=== PATIENT | female | born 1965 | race Caucasian/White ===

== ENCOUNTER 2016-07-24 14:56 | Inpatient (IN) | payer MEDICARE, OTHER ==
--- NOTE | ~2016-07-24 | CO ---
Unit #: [id number] #: [id number] Patient: BIPIN VALENZUELA [id number] [facility] [address] [place], [place] [address] [id number] I MR#: [id number] NAME: BIPIN VALENZUELA ROOM: 570 Age: 51 Sex: F Admission Date: 07/25/2016 : 1965 Attending Physician: Dee Pappas M.D. CONSULTATION REPORT REASON FOR CONSULTATION Syncopal episode. Passing out. PATIENT IDENTIFICATION This is a 51-year-old, right-handed, white female, who was evaluated in room 570 at [facility]. SOURCE OF INFORMATION The family and medical records. PROBLEM LIST 1. She has intellectual disabilities. 2. Asymptomatic low blood sugar. 3. Nonsustained V-tach. 4. Hypothyroidism. 5. Posttraumatic stress disorder. 6. Bipolar disorder. 7. Moderate intellectual disability disorder. 8. Dyslipidemia. 9. GERD. 10. Dysmenorrhea. 11. History of cholecystectomy. HISTORY OF PRESENT ILLNESS This is a 51-year-old female, who is actually a resident of [place], [place] and she was admitted for hypoglycemia, which has been asymptomatic. She was supposed to be discharged today and she did well. She had a bowel movement and she was being cleaned by the caregivers who are usually with her all the time and she apparently sort of collapsed. There was no hypoglycemia. Vital signs were okay. She was not on monitor, so they cleaned her to put her back in bed and then she had another episode of loss of bladder control and her eyes rolled back in her head and she may be down for 10 seconds. She is doing fine right now. She is actually back to the baseline. She cannot tell me anything. She is intellectually challenged and does not talk. Her labs really showed little bit of BUN increase of 25, sodium 132, nothing else major otherwise she is already on Depakote and her level was not checked. Her CBC was unremarkable. Urinalysis showed 5 to 10 wbc's with no bacteria, leukocyte esterase was trace. The family reports that she has had event one time like this and she may be and had EEG and they were told that it was medicine-induced seizure and they were talking about some antipsychotic medication I do not have the names. She is back to her baseline. She is not communicating really well. She Unit #: [id number] #: [id number] Patient: BIPIN VALENZUELA is confabulating and perseverating. She is mildly dysarthric. No imaging studies available. No falls or injuries. No other toxin. Nothing suggesting [employer] infection or meningitis. Nothing suggesting stroke-like situation. PAST MEDICAL HISTORY As discussed above. PAST SURGICAL HISTORY As discussed above. ALLERGIES Penicillin, sulfa, Haldol, Bactrim, Paxil, Phenergan, Benadryl, Zyprexa. MEDICATIONS UPON DISCHARGE Supposed to be acetaminophen 500 mg q.5 hours p.r.n. for pain, Depakote 1250 mg b.i.d., also Depakote 1600 mg p.o. at bedtime, sertraline 100 mg daily, omega-3 fatty acid, lithium 150 mg at bedtime and 300 mg p.o. b.i.d., pravastatin, montelukast, omeprazole, levothyroxine, levocetirizine. FAMILY HISTORY Nothing suggesting situation like hers. There are other family members. I believe she has a brother. SOCIAL HISTORY Resident of [place], [place]. No alcohol or drug use. REVIEW OF SYSTEMS Otherwise could not be obtained because of her comorbidities and intellectual disability. PHYSICAL EXAMINATION VITAL SIGNS: Temperature 98.4, pulse 78, respirations 20, blood pressure 132/89, O2 saturations were 93% to 100%. NEUROLOGIC: The patient is awake. She may be following some simple commands. She squeezes my hand. She is responding to pain. She is talking, dysarthric, but no aphasia otherwise. I cannot say anything about orientation. Cranial nerve examination demonstrates respond to threats in the primary de [place]. Eye movements are conjugate. No ptosis. No nystagmus. Sensation on the face and scalp seemed to be normal. Muscles of facial expression seemed to be normal. Muscles of mastication seemed to be normal. Hearing is probably intact. Tongue was midline. I could not visualize her oropharynx or uvula. Head turning was spontaneous. Motor examination, she is moving all extremities. Strength of at least 4/5. Sensory examination intact for soft touch and pain sensation. No extinction was seen, but that was only by stimulation and her response could not check her otherwise. Unit #: [id number] #: [id number] Patient: BIPIN VALENZUELA I could not get any reflexes. Toes are mute. Gait and coordination could not be evaluated. IMPRESSION Two syncopal type episode. It is very atypical. Unfortunately, she was not on a monitor, so I will await for her EEG. I will check a head CT. I will continue the medication. I am going to check her level. She is on rather high doses of Depakote. I will check her ammonia level. Her labs otherwise are not supportive of other abnormalities, so I will talk to her sister, who is actually her caregiver, I believe. Call me for any other questions, issues, or concerns. She is not in status and further treatment will be based on how she does and I will keep you informed. Seizure precautions state laws apply, but unfortunately she has significant limitations anyway, so she is not driving or doing anything but be careful. Dictated by... Toyin Linton/radha TD: 07/28/2016 22:46 JOB #: [id number] CONSULTATION REPORT Page 1 of 1 X Petrona Jimenez MD X CONSULTATION REPORT
--- NOTE | ~2016-07-24 | CR72 ---
[facility] A Service of [facility] RADIOLOGY TEXT RESULTS PATIENT: BIPIN VALENZUELA LOCATION: [facility] 570-01 : [birth year] UNIT #: [id number] AGE: [address]: Dee Pappas MD SEX: F ORDER DR: [id number] [facility] [address] [facility]. [place], [place] [address] [id number] I MR#: [id number] Acc #: [id number] NAME: BIPIN VALENZUELA : 1965 SEX: F STUDY DATE/TIME: 07/24/2016 15:20 UNIT: [facility] ROOM: 01207 STUDY DESCRIPTION: CR Chest Single View Portable Attending Physician: Antonio Hernandez M.D. Ordering Physician: Edilson Lester M.D. Primary Care Physician: No Primary Care Physician MEDICAL IMAGING REPORT This report is preliminary unless electronic signature is present EXAM Portable chest HISTORY 51-year-old female with low blood sugar and weakness today. COMPARISON No comparisons. FINDINGS The lungs are well expanded. No acute infiltrate. Heart size normal. IMPRESSION No active disease. Dictated by... Marshall Albarran M.D. THIS IS AN ELECTRONICALLY VERIFIED REPORT Marshall Albarran M.D. at 07/25/2016 8:39 AM BERNARDO/john TD: 07/24/2016 20:28 JOB #: [id number] MEDICAL IMAGING REPORT Page 1 of 1 COPY
--- NOTE | ~2016-07-24 | CT71 ---
[facility] A Service of [facility] RADIOLOGY TEXT RESULTS PATIENT: BIPIN VALENZUELA LOCATION: [facility] : [birth year] UNIT #: [id number] AGE: [address]: Dee Pappas MD SEX: F ORDER DR: [id number] [place], [place] [address] [id number] I MR#: [id number] Acc #: [id number] NAME: BIPIN VALENZUELA : 1965 SEX: F STUDY DATE/TIME: 07/28/2016 20:39 UNIT: [facility] ROOM: [facility] STUDY DESCRIPTION: CT Head Wo Contrast Attending Physician: Dee Pappas M.D. Ordering Physician: Petrona Jimenez M.D. Primary Care Physician: Primary Care Physician No MEDICAL IMAGING REPORT This report is preliminary unless electronic signature is present EXAM CT brain without contrast HISTORY Syncope today. TECHNIQUE This CT examination was performed with one or more of the following radiation dose reduction techniques: automatic exposure control, adjustment of mA and/or kV according to patient size, and iterative reconstruction. FINDINGS CT brain without contrast demonstrates mild generalized cerebral and cerebellar cortical atrophy. No intracranial hemorrhage, mass or edema is identified. No midline shift or ventricular dilatation or extraaxial fluid collection is demonstrated. The exam is partly limited by motion artifact. IMPRESSION No acute findings. Dictated by... Christian Beck M.D. THIS IS AN ELECTRONICALLY VERIFIED REPORT Christian Beck M.D. at 07/29/2016 3:06 PM DFL/bear TD: 07/29/2016 10:08 JOB #: [id number] [facility] A Service of [facility] RADIOLOGY TEXT RESULTS PATIENT: BIPIN VALENZUELA LOCATION: [facility] : [birth year] UNIT #: [id number] AGE: [address]: Dee Pappas MD SEX: F ORDER DR: MEDICAL IMAGING REPORT Page 1 of 1 COPY
--- NOTE | ~2016-07-24 | EE ---
Unit #: [id number] #: [id number] Patient: BIPIN VALENZUELA [id number] [address] [address] [id number] I MR#: [id number] NAME: BIPIN VALENZUELA : 1965 SEX: F STUDY DATE/TIME: 07/29/2016 UNIT: [facility] [place] [facility] ROOM: 570 STUDY DESCRIPTION: Attending Physician: Dee Pappas M.D. Referring Physician: Petrona Jimenez M.D. Primary Care Physician: No Primary Care Physician NEURODIAGNOSTICS REPORT EXAM EEG. REASON FOR THE STUDY Two syncopal episodes. EEG DESCRIPTION This is an inpatient, digitally recorded, multimontage adult EEG with leads placed according to the International 10/20 System. Hyperventilation and photic stimulation were not done. This EEG shows significant muscle and beta artifact. I could not establish a good background but it was rather faster. It could have been 8 to 10 Hz but not very well established and significant contamination. Nonetheless, no asymmetry. There was a motion artifact. The patient did not fall asleep. Hyperventilation and photic stimulation was not done. Nothing suggesting clear cut asymmetry, interictal discharges, or clinical events. IMPRESSION This is likely an abnormal EEG showing no good alpha rhythm but with significant contamination from muscle and beta artifact. I cannot say anything else, so the important factor is nothing suggesting seizure, status, or interictal discharges, or the cause so clinical correlation is recommended. Dictated by... Toyin Linton/geoffrey TD: 07/29/2016 10:39 JOB #: [id number] Unit #: [id number] #: [id number] Patient: BIPIN VALENZUELA NEURODIAGNOSTICS REPORT Page 1 of 1 X Petrona Jimenez MD NEURODIAGNOSTICS REPORT
--- NOTE | ~2016-07-24 | HP ---
Unit #: [id number] #: [id number] Patient: BIPIN VALENZUELA [id number] [address] [address] [id number] I MR#: [id number] NAME: BIPIN VALENZUELA ROOM: 76913 Age: 51 Sex: F Admission Date: 07/24/2016 : 1965 Attending Physician: Antonio Hernandez M.D. Primary Care Physician: Primary Care Physician No HISTORY AND PHYSICAL CHIEF COMPLAINT Hypoglycemia with sugars down to 57. HISTORY OF PRESENT ILLNESS The patient is 51-year-old female with history of bipolar disorder, PTSD, hypothyroidism, resident of the [place], [place], who presented to the dental clinic earlier today at the [facility]. The patient was presented to the [facility] for followup. The patient reported blood sugar of 64. The patient had breakfast early in the morning at 7:15 a.m. and the patient had the repeat blood sugar it was 57. The patient received honey and glucose and the patient was brought to the emergency room for further evaluation. Patient's sugars were up to 99 in the emergency room and then the blood sugar was drop again to 50s after an hour. The ER physician wants to bring in the patient for the hypoglycemia. The patient is combative, incoherent and unable to provide any history and the history is obtained by speaking to the patient's caregiver at the bedside. Denies any headache, any new medications, or any nausea or vomiting, or any history of diabetes. PAST MEDICAL HISTORY 1. History of bipolar disorder. 2. Posttraumatic stress disorder. 3. Moderate intellectual development disorder. 4. Hypothyroidism. 5. Dyslipidemia. 6. GERD. 7. Dysmenorrhea. PAST SURGICAL HISTORY History of cholecystectomy. HOME MEDICATIONS 1. [place] calcium. 2. Divalproex. 3. Colace. 4. Fish oil. 5. Levocetirizine. 6. [place]. 7. Levothyroxine. 8. Singulair. 9. Omeprazole. 10. Sertraline. 11. Vitamins. 12. Pravastatin. Unit #: [id number] #: [id number] Patient: BIPIN VALENZUELA ALLERGIES 1. Penicillin. 2. Sulfa. 3. Haldol. 4. Bactrim. 5. Paxil. 6. Phenergan. 7. Benadryl. 8. Zyprexa. SOCIAL HISTORY A resident of [place], [place]. No history of alcohol or smoking cigarettes or any illicit drug abuse. REVIEW OF SYSTEMS Unable to obtain. PHYSICAL EXAMINATION VITAL SIGNS: Temperature 99.1, pulse 80, respiratory rate 14, blood pressure 145/96, saturating 99% at room air. GENERAL: Patient is lying on the bed not in acute distress. HEENT: Atraumatic, normocephalic. Pupils equal, round, and reactive to light and accommodation. Extraocular movements are intact. NECK: Supple. No JVD. LUNGS: Clear to auscultation bilaterally. No rhonchi, no wheezing. HEART: Regular rate and rhythm. ABDOMEN: Soft, positive bowel sounds. EXTREMITIES: No cyanosis, no clubbing. DIAGNOSTIC STUDIES LABORATORY: Glucose 99, BUN 26, creatinine 1.3, sodium 145, potassium 3.7, chloride 111, bicarb 26, calcium 9.6, total bilirubin 0.4, AST 25, ALT 21, alkaline phosphatase 77. Lactic acid is 2. [place] level is 0.9. INR 1. Troponin less than 0.05. WBC 5, hemoglobin 13.1, hematocrit 40.2, platelets 112. UA shows trace leukocyte esterase and 5-10 urine wbc's, urine bacteria is negative. IMAGING: Chest x-ray negative. ASSESSMENT AND PLAN 1. Hypoglycemia. 2. Hypothyroidism. 3. Bipolar disorder. PLAN 1. Admit patient as observation with telemetry. 2. Continue with IV fluid D5 half NS at 75 mL per hour. 3. Check hemoglobin A1c. 4. Repeat the lactic acid. There is no evidence of infection. 5. Follow up with a lithium level. 6. Further recommendations will follow as more lab results become available. Dictated by Antonio Hernandez M.D. Unit #: [id number] #: [id number] Patient: BIPIN VALENZUELA IMELDA/cayetano TD: 07/24/2016 22:08 JOB #: [id number] HISTORY AND PHYSICAL Page 1 of 1 X X HISTORY AND PHYSICAL
--- NOTE | ~2016-07-24 | ST ---
Unit #: [id number] #: [id number] Patient: BIPIN VALENZUELA [id number] [address] [address] [id number] MR#: [id number] NAME: BIPIN VALENZUELA : 1965 SEX: F STUDY DATE/TIME: 07/26/2016 UNIT: [facility] ROOM: 570 STUDY DESCRIPTION: Stress ECG Attending Physician: Dee Pappas M.D. Primary Care Physician: No Primary Care Physician CARDIOLOGY REPORT EXAM Stress ECG. FINDINGS Result text under nuclear order number. Please see this order for result text. Dictated by... Jonah Love M.D. PJAubrie/lex TD: 07/27/2016 13:44 JOB #: [id number] CARDIOLOGY REPORT Page 1 of 1 X Jonah Love MD CARDIOLOGY REPORT
--- NOTE | ~2016-07-24 | DS ---
Unit #: [id number] #: [id number] Patient: BIPIN VALENZUELA [address] [place], [place] [address] [id number] I MR#: [id number] NAME: BIPIN VALENZUELA ROOM: 570 Age: 51 Sex: F Admission Date: 07/25/2016 : 1965 Discharge Date: 07/29/2016 Attending Physician: Dee Pappas M.D. Primary Care Physician: No Primary Care Physician DISCHARGE SUMMARY ADDENDUM DISCHARGE DIAGNOSES 3. Probable syncope. INPATIENT PROCEDURES 3. Cardiolite stress test which was negative for ischemia. HOSPITAL COURSE Following last dictation patient was in the process of being discharged when she abruptly sat up. She developed some nausea, had a few episodes of emesis and then had what was described as either a seizure or syncopal episode. Discharge was held. Patient was seen by Dr. Jimenez, her neurologist, in consultation. EEG was negative for seizure. Interestingly enough her Depakote level was low but this is likely due to the fact she had missed doses for several days prior to presentation. It is clinically felt that this was unlikely to be seizure, most likely was a syncopal episode, vagal in origin. She has remained stable without any further episodes and thus she will be discharged back to her facility. I will note patient again underwent a 48-hour fast and did not have any episodes of hypoglycemia. Sugars remained otherwise stable. Just encourage continued p.o. intake. DISCHARGE CONDITION Stable. DISCHARGE STATUS Discharge back to [facility] in [place], [place] under the care of Dr. Torrez. DISCHARGE MEDICATIONS DISCHARGE MEDICATIONS 1. Tylenol 500 mg p.o. q.4 h. p.r.n. for pain 2. Depakote 1250 mg p.o. b.i.d. with 1500 mg q.h.s. 3. Zoloft 100 mg daily 4. Fish oil 500O mg daily. 5. [place] 150 mg q.h.s. and 300 mg otherwise b.i.d. 6. Risamine ointment 3.5 topically b.i.d. 7. Docusate 100 mg q.h.s. 8. Pravastatin 20 mg q.h.s. 9. Singulair 10 mg daily. Unit #: [id number] #: [id number] Patient: BIPIN VALENZUELA 10. Omeprazole 40 mg daily 11. Levocetirizine 2.5 mg q.h.s. 12. Levothyroxine 100 mcg p.o. daily. DISCHARGE INSTRUCTIONS 1. Patient was instructed to follow a regular diet. 2. She can increase her activity as tolerated. FOLLOWUP Patient will follow up with the medical safety director of [facility] in [place], [place]. Dictated by... Dee Pappas M.D. REBEKAH/patti TD: 07/29/2016 15:43 JOB #: [id number] DISCHARGE SUMMARY Page 1 of 1 X Dee Pappas MD X DISCHARGE SUMMARY
--- NOTE | ~2016-07-24 | EKG ---
PATIENT: BIPIN VALENZUELA UNIT #: [id number] Ventricular Rate: 76 BPM Atrial Rate: 76 BPM P-R Interval: 150 ms QRS Duration: 84 ms Q-T Interval: 416 ms QTC Calculation(Bezet): 468 ms P [place]: 49 degrees Calculated R [place]: 47 degrees Calculated T [place]: 14 degrees Diagnosis Line: Normal sinus rhythm Diagnosis Line: Nonspecific T wave abnormality Diagnosis Line: Prolonged QT Diagnosis Line: Abnormal ECG Diagnosis Line: When compared with ECG of 24-JUL-2016 15:23, Diagnosis Line: (unconfirmed) Diagnosis Line: Premature supraventricular complexes are no longer Diagnosis Line: Present Diagnosis Line: Confirmed by MAHESH SIMONS MD ([id number]) on 07/26/2016 Diagnosis Line: 9:30:57 AM INTERPRETING MD: KRISTYN WOODWARD
--- NOTE | ~2016-07-24 | EKG ---
PATIENT: BIPIN VALENZUELA UNIT #: [id number] Ventricular Rate: 70 BPM Atrial Rate: 70 BPM P-R Interval: 150 ms QRS Duration: 68 ms Q-T Interval: 404 ms QTC Calculation(Bezet): 436 ms P [place]: 79 degrees Calculated R [place]: 36 degrees Calculated T [place]: 50 degrees Diagnosis Line: Normal sinus rhythm Diagnosis Line: Nonspecific ST abnormality Diagnosis Line: Baseline wander Otherwise normal ECG Diagnosis Line: When compared with ECG of 24-JUL-2016 15:24, Diagnosis Line: ST elevation now present in Inferior leads Diagnosis Line: Confirmed by MAHESH SIMONS MD ([id number]) on 07/29/2016 Diagnosis Line: 10:59:34 PM INTERPRETING MD: KRISTYN WOODWARD
--- NOTE | ~2016-07-24 | CO ---
Unit #: [id number] #: [id number] Patient: BIPIN VALENZUELA [id number] [address] [address] [id number] I MR#: [id number] NAME: BIPIN VALENZUELA ROOM: 570 Age: 51 Sex: F Admission Date: 07/25/2016 : 1965 Attending Physician: Dee Pappas M.D. Consultation Date: 07/26/2016 CONSULTATION REPORT REASON FOR CONSULTATION Hypoglycemia. HISTORY OF PRESENT ILLNESS This is a 51-year-old female with history of bipolar disorder, PTSD, hypothyroidism, who is a resident of [place], [place], who presented to the clinic for followup. She reports to have a blood sugar of 64 and then 57. On arrival in the emergency room, the patient's blood sugar dropped to 50s. She has been admitted for the hypoglycemia. The patient is very combative, noncooperative, unable to provide any history. PAST MEDICAL HISTORY Reviewed. The patient has no history of any diabetes or any oral hypoglycemic agents. PAST MEDICAL HISTORY Remarkable for bipolar disorder, PTSD, hypothyroidism, GERD, dyslipidemia. PAST SURGICAL HISTORY Cholecystectomy. HOME MEDICATIONS List is reviewed. The patient is on Depakote, lithium, levothyroxine, omeprazole, pravastatin. ALLERGIES Penicillin, sulfa, Haldol, Bactrim, Paxil, and Phenergan. SOCIAL HISTORY Resident of [place]. No history of alcohol, smoking, or drug abuse. PHYSICAL EXAMINATION GENERAL: She is uncooperative and combative, in no acute respiratory distress. VITAL SIGNS: Temperature 97.3, pulse is 101, respiratory rate 18, blood pressure is 139/85. HEENT: EOMI. Pupils equally reactive to light. NECK: Supple. No thyromegaly noted. CHEST: Good air entry. CVS: Regular rhythm. ABDOMEN: Benign. NEURO: Moving all the extremities. DIAGNOSTIC STUDIES Unit #: [id number] #: [id number] Patient: BIPIN VALENZUELA LABORATORY RESULTS: Accu-Cheks is reviewed. ASSESSMENT Recurrent hypoglycemia. Etiology is not clear at this point. We will rule out the possibility of the insulin secreting tumor. We will keep the patient n.p.o. discontinue IV fluids. Draw Accu-Cheks every 1 to 2 hours and blood sugar less than 50. We will draw the serum insulin C-peptide, glucose, and ketones and serum cortisol level. Once all those have been drawn, the patient will be started back on her diet and IV fluids and treat the hypoglycemia per protocol. I will continue to follow the patient for further management and evaluation. Dictated by... Toyin Pierce/radha TD: 07/27/2016 01:28 JOB #: [id number] CONSULTATION REPORT Page 1 of 1 X Tessa Ventura MD X CONSULTATION REPORT
--- NOTE | ~2016-07-24 | TH ---
Unit #: [id number] #: [id number] Patient: BIPIN VALENZUELA [id number] [address] [address] [id number] I MR#: [id number] NAME: BIPIN VALENZUELA : 1965 SEX: F STUDY DATE/TIME: 07/26/2016 UNIT: [facility] ROOM: 570 STUDY DESCRIPTION: Stress nuclear Attending Physician: Dee Pappas M.D. Primary Care Physician: No Primary Care Physician CARDIOLOGY REPORT EXAM Stress nuclear and ECG. INDICATION Chest pain, inability to exercise, hypertension. SUMMARY The patient received Lexiscan intravenously while at rest as well as Tc-99 Cardiolite, 11.49 and 33.7 mCi, at rest and stress respectively. Appropriate views were obtained. FINDINGS The rest ECG was normal. With stress, there was definite T wave inversion in leads II, III, aVF, V3 through V6. These changes resolved post stress. Heart rate increased from 65 to 125 and blood pressure decreased from 143/92 to 125/83. Perfusion images demonstrate normal perfusion throughout the myocardium at both rest and stress with the exception of chest wall and breast attenuation artifact. The patient demonstrated significant motion with the stress images but not the rest images. Gated perfusion wall motion analysis demonstrates normal wall motion throughout the myocardium, a small ventricle end-diastolic volume 55 mL, ejection fraction 66%. Summed stress score is 2. Summed difference score is 2. Changes involve primarily border detection at the base. IMPRESSION 1. Abnormal stress ECG with Lexiscan, not diagnostic for ischemia. 2. Normal stress nuclear study without any evidence of ischemia or infarction. 3. Normal wall motion with excellent ejection fraction. Dictated by... Toyin Bergman/lex TD: 07/27/2016 13:38 JOB #: [id number] Unit #: [id number] #: [id number] Patient: BIPIN VALENZUELA CARDIOLOGY REPORT Page 1 of 1 X Jonah Love MD CARDIOLOGY REPORT
--- NOTE | ~2016-07-24 | DS ---
Unit #: [id number] #: [id number] Patient: BIPIN VALENZUELA [id number] [address] [address] [id number] MR#: [id number] NAME: BIPIN VALENZUELA ROOM: 570 Age: 51 Sex: F Admission Date: 07/25/2016 : 1965 Discharge Date: 07/28/2016 Attending Physician: Dee Pappas M.D. Primary Care Physician: Primary Care Physician No DISCHARGE SUMMARY The patient is a resident of [place], [place]. PRINCIPAL DISCHARGE DIAGNOSES 1. Asymptomatic low blood sugars. 2. Nonsustained V-tach. SECONDARY DIAGNOSES 1. Hypothyroidism. 2. Posttraumatic stress disorder. 3. Bipolar disorder. CONSULTATIONS Dr. Ventura from endocrinology INPATIENT PROCEDURES 1. On 07/26/2016, Lexiscan showed no ST-T wave changes. 2. Forty-eight hour fasting test showed no episodes of hypoglycemia. DISCHARGE MEDICATIONS The patient is to continue his medications on admission as follows: 1. Acetaminophen 500 mg p.o. q.5h p.r.n. for pain 2. Depakote 1250 mg p.o. b.i.d. 3. Depakote 1600 mg p.o. at bedtime 4. Sertraline 100 mg p.o. daily 5. [place] 3 fatty acids 6. [place] 150 mg at bedtime and 300 mg p.o. b.i.d. 7. Docusate p.o. q.h.s. 8. Pravastatin 20 mg daily 9. Montelukast 10 mg p.o. q.h.s. 10. Omeprazole 40 mg daily 11. Levocetirizine 2.5 mg p.o. q.h.s. 12. Levothyroxine 100 mcg p.o. daily HISTORY OF PRESENT ILLNESS AND HOSPITAL COURSE Ms. Valenzuela is a 51-year-old female, with history of significant bipolar disorder, posttraumatic stress disorder, and hypothyroidism, who is a resident of [place], [place] and was found at a dental clinic to have a blood sugar of 57. The patient was given honey and glucose and was brought to the emergency room where her glycemia was noted to be 99 and a few hours later it was found to have dropped to the 50s. The patient was admitted and endocrinology was consulted. The patient was placed on n.p.o. and glycemia was monitored every two hours with standing orders to check for C-peptide as well as glucose, beta hydroxybutyrate acid and Unit #: [id number] #: [id number] Patient: BIPIN VALENZUELA cortisol level, however, after 48 hours the patient did not develop any episodes of hypoglycemia. Her later glycemia was noted as 60 and she remained asymptomatic throughout the hospitalization. She was on telemetry and it was noted that she developed an episode of nonsustained V-tach and because of this she underwent Lexiscan stress test on 07/26 and that failed to reveal any ischemia changes. Today, the patient is stable and after discussion with Dr. Ventura she was considered to be okay for discharge. Her previous episode was asymptomatic and she is not felt to have any pathologic cause of her hypoglycemia. This was explained to the family and it was also indicated to them that if the patient develops episodes of hypoglycemia of 50 or less or become symptomatic from her low blood sugars, she should come back to the hospital. She will follow up with her physician at [facility]. CONDITION Improved. DISPOSITION The patient is being discharged back to the [facility] in [place], [place]. FOLLOWUP The patient is to follow up with her primary care doctor in a week. Dictated by.Rabia Longoria M.D. WINDY/carlos alberto TD: 07/28/2016 11:29 JOB #: [id number] DISCHARGE SUMMARY Page 1 of 1 X X DISCHARGE SUMMARY
[2016-07-24 15:46] LABS: BASOPHIL% 0.4 % (0-2.5); EOSINOPHIL# 0.1 X10e3 (0-0.7); EOSINOPHIL% 2.3 % (0.0-7.0); HEMATOCRIT 40.2 % (35.0-45.0); HEMOGLOBIN 13.1 gm/dL (12.0-16.0); LYMPHOCYTE% 39.3 % (17.0-45.0); MEAN CELL VOLUME 97.1 FL (83-96); MEAN CORPUSCULAR HEMOGLOBIN 31.7 PG (28-34); MEAN CORPUSCULAR HGB CONC 32.7 g/dL (30-36); MEAN PLATELET VOLUME 9.2 FL (6.5-11.5); MONOCYTE# 0.5 X10e3 (0-1.0); MONOCYTE% 9.5 % (3.0-12.0); NEUTROPHIL# 2.4 X10e3 (1.5-7.1); NEUTROPHIL% 48.5 % (40-75); PLATELET COUNT 112 X10e3 (140-420); RED BLOOD COUNT 4.14 X10e (3.90-5.30); RED CELL DISTRIBUTION WIDTH 13.9 % (11.0-15.5)
[2016-07-24 15:47] LABS: DIFF IND NO
[2016-07-24 16:10] LABS: PARTIAL THROMBOPLASTIN TIME 23.6 SECONDS (23.5-31.3); PROTHROMBIN TIME (PATIENT) 10.7 SECONDS (9.6-11.5)
[2016-07-24 16:22] LABS: ALBUMIN SERUM 3.7 g/dL (3.5-5.0); BILIRUBIN, DIRECT 0.1 mg/dL (0.0-0.2); BILIRUBIN,INDIRECT 0.3 mg/dL (0.0-0.9); BILIRUBIN,TOTAL 0.4 mg/dL (0.2-2.0); CALCIUM SERUM 9.6 mg/dL (8.4-10.2); CREATININE SERUM 1.3 mg/dL (0.6-1.4); GLOM FILT RATE Estimated 46.3 mL/min (>60); POTASSIUM 3.7 mmol/L (3.5-5.1); PROTEIN TOTAL SERUM 6.9 g/dL (6.0-8.3)
[2016-07-24 17:51] LABS: URINE SOURCE CLEAN CATCH
[2016-07-24 17:55] LABS: URINE APPEARANCE CLEAR; URINE BILIRUBIN NEG (NEG); URINE BLOOD 1+ (NEG); URINE COLOR YELLOW; URINE GLUCOSE NEG (NEG); URINE KETONE NEG (NEG); URINE LEUKOCYTE ESTERASE TRACE (NEG); URINE NITRATE NEG (NEG); URINE PH 7.5 (5-8); URINE PROTEIN NEG (NEG); URINE SPECIFIC GRAVITY 1.014 (1.003-1.035); URINE UROBILINOGEN 0.2 MG/DL (NEG)
[2016-07-24 17:55] LABS: POC - CKMB <1.0 ng/mL (0.0-7.9); POC - TROPONIN <0.05 ng/mL (<=0.05)
[2016-07-24 17:58] LABS: CULTURE INDICATED? YES; URINE BACTERIA AUWI NEG (NEGATIVE); URINE SQUAMOUS EPITHELIAL CELL FEW /[HPF]
[2016-07-24] MEDS ORDERED: OMEPRAZOLE40 M1 PO (19:30)
[2016-07-24] MEDS ORDERED: CALCIUM 500 +1 EAC2 PO (19:33)
[2016-07-24] MEDS ORDERED: ACETAMINOPHEN650 M3 PO (19:34)
[2016-07-24] MEDS ORDERED: SERTRALINE HCL100 M1 PO (19:35)
[2016-07-24] MEDS ORDERED: FISH OIL500 M1 PO (19:35)
[2016-07-24] MEDS ORDERED: LEVOCETIRIZINE D5 MG PO (19:47)
[2016-07-24] MEDS ORDERED: CHILDREN'S EASY80 MG PO (19:48)
[2016-07-24] MEDS ORDERED: CALCIUM STOOL240 M1 PO (19:49)
[2016-07-24] MEDS ORDERED: LEVOTHYROXINE100 MC1 PO (19:50)
[2016-07-24] MEDS ORDERED: MONTELUKAST SOD10 MG PO (19:50)
[2016-07-24] MEDS ORDERED: MYLANTA125 MG PO (19:53)
[2016-07-24] MEDS ORDERED: RISAMINE OINTM113 GM TOP (19:54)
[2016-07-24] MEDS ORDERED: PRAVASTATIN SOD20 MG PO (19:55)
[2016-07-24] MEDS ORDERED: FISH OIL 1,0001 CAP PO (19:56)
[2016-07-24] MEDS ORDERED: ESKALITH PO ×2 (20:08→20:09)
[2016-07-24] MEDS ORDERED: SINGULAIR PO (20:10)
[2016-07-24] MEDS ORDERED: LITHIUM CARBON300 M1 PO (21:26)
[2016-07-24] MEDS ORDERED: LITHIUM CARBON150 MG PO (21:26)
[2016-07-24] MEDS ORDERED: DEPAKOTE PO ×2 (21:32)
[2016-07-25 16:00] LABS: BUN/CREATININE RATIO 14.61; CALCIUM SERUM 8.6 mg/dL (8.4-10.2); CREATININE SERUM 1.3 mg/dL (0.6-1.4); GLOM FILT RATE Estimated 48.1 mL/min (>60)
[2016-07-26 14:53] LABS: BUN/CREATININE RATIO 13.84; CALCIUM SERUM 9.1 mg/dL (8.4-10.2); CREATININE SERUM 1.3 mg/dL (0.6-1.4); GLOM FILT RATE Estimated 48.1 mL/min (>60); POTASSIUM 4.4 mmol/L (3.5-5.1)
[2016-07-27 07:05] LABS: BUN/CREATININE RATIO 13.07; CALCIUM SERUM 9.3 mg/dL (8.4-10.2); CREATININE SERUM 1.3 mg/dL (0.6-1.4); GLOM FILT RATE Estimated 48.1 mL/min (>60); MAGNESIUM 1.9 mg/dL (1.6-3.0); POTASSIUM 4.3 mmol/L (3.5-5.1)
[2016-07-28 05:07] LABS: BUN/CREATININE RATIO 16.92; CALCIUM SERUM 9.1 mg/dL (8.4-10.2); CREATININE SERUM 1.3 mg/dL (0.6-1.4); GLOM FILT RATE Estimated 48.1 mL/min (>60); POTASSIUM 3.9 mmol/L (3.5-5.1)
[2016-07-28 14:11] LABS: HEMATOCRIT 39.3 % (35.0-45.0); HEMOGLOBIN 13.5 gm/dL (12.0-16.0); MEAN CELL VOLUME 92.5 FL (83-96); MEAN CORPUSCULAR HEMOGLOBIN 31.8 PG (28-34); MEAN CORPUSCULAR HGB CONC 34.4 g/dL (30-36); MEAN PLATELET VOLUME 8.7 FL (6.5-11.5); RED BLOOD COUNT 4.25 X10e (3.90-5.30); RED CELL DISTRIBUTION WIDTH 13.1 % (11.0-15.5); WHITE BLOOD COUNT 7.2 X10e3 (4.0-10.5)
[2016-07-28 14:40] LABS: ALBUMIN SERUM 3.4 g/dL (3.5-5.0); BILIRUBIN,TOTAL 0.7 mg/dL (0.2-2.0); BUN/CREATININE RATIO 17.85; CALCIUM SERUM 8.8 mg/dL (8.4-10.2); CREATININE SERUM 1.4 mg/dL (0.6-1.4); POTASSIUM 3.5 mmol/L (3.5-5.1); PROTEIN TOTAL SERUM 6.6 g/dL (6.0-8.3)
[2016-07-28 18:17] LABS: MAGNESIUM 1.7 mg/dL (1.6-3.0)
[2016-07-29 08:27] LABS: HEMATOCRIT 38.1 % (35.0-45.0); HEMOGLOBIN 12.9 gm/dL (12.0-16.0); MEAN CELL VOLUME 94.8 FL (83-96); MEAN CORPUSCULAR HEMOGLOBIN 32.1 PG (28-34); MEAN CORPUSCULAR HGB CONC 33.8 g/dL (30-36); MEAN PLATELET VOLUME 9.2 FL (6.5-11.5); RED BLOOD COUNT 4.01 X10e (3.90-5.30); RED CELL DISTRIBUTION WIDTH 13.8 % (11.0-15.5)
[2016-07-29 08:43] LABS: ALBUMIN SERUM 3.1 g/dL (3.5-5.0); BILIRUBIN,TOTAL 0.4 mg/dL (0.2-2.0); BUN/CREATININE RATIO 16.92; CALCIUM SERUM 8.3 mg/dL (8.4-10.2); CREATININE SERUM 1.3 mg/dL (0.6-1.4); GLOM FILT RATE Estimated 48.1 mL/min (>60); MAGNESIUM 1.9 mg/dL (1.6-3.0); PROTEIN TOTAL SERUM 6.3 g/dL (6.0-8.3)
== END 2016-07-29 17:17 | DRG 641 ==
LOC: CED 14:56 → CEDOF 19:15 → C5C 07-25 14:20
PROVIDERS: Emergency Medicine; Internal Medicine; Psychiatry & Neurology Neurology
DX: E16.2 Hypoglycemia, unspecified (principal); I47.2 Ventricular tachycardia; E03.9 Hypothyroidism, unspecified; F43.10 Post-traumatic stress disorder, unspecified; F31.9 Bipolar disorder, unspecified; R55 Syncope and collapse; F71 Moderate intellectual disabilities; E78.5 Hyperlipidemia, unspecified; K21.9 Gastro-esophageal reflux disease without esophagitis; Z90.49 Acquired absence of other specified parts of digestive tract; Z88.1 Allergy status to other antibiotic agents; Z88.0 Allergy status to penicillin; Z88.2 Allergy status to sulfonamides; Z88.8 Allergy status to other drugs, medicaments and biological substances
CPT/HCPCS: 36415; 51701; 70450; 71010; 78452; 80048; 80053; 80076; 80164; 80178; 81003; 82140; 82553; 82947; 83036; 83605; 83735; 84443; 84484; 84681; 85025; 85027; 85610; 85730; 87040; 87086; 93005; 93017; 94760; 95816; 99285; A9500; J1650; J2785